=== PATIENT | female | born 1980 | race Caucasian/White ===

== ENCOUNTER 2022-08-11 15:57 | Emergency (ER) | payer OTHER, SELFPAY ==
[2022-08-11 16:14] VITALS: BP 153/96; PULSE 93; RESP 18; TEMP 36.4; O2SAT 100
--- NOTE | 2022-08-11 16:48 | ED.SKABFB ---
HPI - Skin/Abscess/Foreign Bdy General Chief complaint: Skin/Abscess/Foreign Body Stated complaint: Insect Bite Lt Leg Time Seen by Provider: 08/11/22 16:49 Source: patient Mode of arrival: ambulatory Limitations: no limitations History of Present Illness HPI narrative: 42-year-old female presented for complaint of left upper thigh insect bite and bruising worsening since yesterday. She states she sustained the insect bite after cleaning out the garage, but is unsure of what insect bit her. Reports itching, She is not taken anything for itching. States the site became warm today and the bruising spread. Denies pain, redness, or drainage, n/v/d/f/c. Related Data Allergies Allergy/AdvReac Type Severity Reaction Status Date / Time No Known Allergies Allergy Unknown Verified 03/06/21 14:29 Cephalosporins AdvReac Mild Rash Verified 08/11/22 16:11 dicloxacillin AdvReac Mild Rash Verified 08/11/22 16:11 Penicillins AdvReac Mild Rash Verified 08/11/22 16:11 Review of Systems Review of Systems: CONSTITUTIONAL: Denies body aches, fever, chills, or sweats. EYES: Denies visual changes, redness, or discharge. ENT: Denies rhinorrhea, congestion CARDIOVASCULAR: Denies chest pain, palpitations, or edema. RESPIRATORY: Denies cough or dyspnea. GASTROINTESTINAL: Denies abdominal pain, nausea, vomiting, or diarrhea. SKIN: per HPI MUSCULOSKELETAL: Denies back pain, joint pain, or myalgia. NEUROLOGIC: Denies headache, numbness, tingling, or weakness. FORMERLY [facility] Past Medical History Medical History KEITH positive (~2019) H/O nephrolithotomy with removal of calculi Seasonal allergies Undifferentiated connective tissue disease (~2019) Social History Social History Smoking status: Never smoker Alcohol intake: current Comments At time of signature, I have reviewed and agree with nursing past medical, surgical, social and family history unless otherwise noted. Please see nursing chart for further information. There is no relevant family history pertinent to the presenting complaint Exam Narrative: GENERAL: Well-appearing HEAD: Normocephalic, atraumatic. EYES: conjunctivae clear, and EOMI. ENT: Mucous membranes moist. Oropharynx without edema, erythema or lesions. NECK: Supple. No lymphadenopathy CHEST: Clear to auscultation. HEART: Regular rate and rhythm. SKIN: Warm, dry. Left upper thigh with puncture site c/w insect bite, no erythema, drainage, induration or fluctuance; Ecchymosis 8.5x4cm Proximal to insect bite, soft, nontender, no warmth NEURO: Alert and oriented x3. Course Course Emergency Course: Patient is aware of diagnosis, understands and agrees to treatment plan. Anticipatory guidance given. Patient agrees to follow-up as directed and is aware of reasons to seek care at the emergency department. Portions of this record may have been created with voice recognition software Level of Care: Express Care Visit Vital Signs Vital signs: Vital Signs Temperature 97.6 F 08/11/22 16:14 Pulse Rate 93 08/11/22 16:14 Respiratory Rate 18 08/11/22 16:14 Blood Pressure 153/96 H 08/11/22 16:14 Pulse Oximetry 100 08/11/22 16:14 Oxygen Delivery Room Air 08/11/22 16:14 Temperature 97.6 F 08/11/22 16:14 Pulse Rate 93 08/11/22 16:14 Respiratory Rate 18 08/11/22 16:14 Blood Pressure 153/96 H 08/11/22 16:14 Pulse Oximetry 100 08/11/22 16:14 Oxygen Delivery Room Air 08/11/22 16:14 Reviewed MDM - Skin/Abscess/Foreign Bdy MDM Narrative Medical decision making narrative: Discussed physical exam findings. Advised supportive measures and signs/symptoms to go to the ER. Pt is appropriate for outpt treatment and f/u. Instructed patient to go to nearest ER immediately for any worsening symptoms including but not limited to: fever, spreading rash, pain, dizziness, chest
== END 2022-08-11 16:57 | disposition home or self-care (01) ==
PROVIDERS: Emergency Provider Nurse Practitioner Family; PCP Nurse Practitioner Family
DX: S70.362A Insect bite (nonvenomous), left thigh, initial encounter (principal); W57.XXXA Bitten or stung by nonvenomous insect and other nonvenomous arthropods, initial encounter
CPT/HCPCS: 99213; G0463